=== PATIENT | female | born 1960 | race Hispanic/Latino ===

== ENCOUNTER → 2024-02-05 | Outpatient (REF) | payer OTHER ==
[~2024-02-05] MED LIST: COZAAR25 MG PO; HYDROCHLOROTH12.5 MG PO; LOVASTATIN40 MG PO
== END ==
LOC: DX 08:34
PROVIDERS: ATTEND Internal Medicine
DX: Z12.31 Encounter for screening mammogram for malignant neoplasm of breast (principal); Z13.820 Encounter for screening for osteoporosis
CPT/HCPCS: 77067; 77080